=== PATIENT | male | born 1970 | race Caucasian/White ===

== ENCOUNTER → 2017-11-02 | Outpatient (CLI) | payer MEDICARE, MEDICAID ==
--- NOTE | 2017-11-02 19:32 | RADIOLOGY REPORT (SQ) ---
EXAM DESCRIPTION: U/S EXTREMITY NONVASCULAR LTD COMPLETED DATE/TIME: 11/02/2017 5:33 pm REASON FOR STUDY: MASS OF JOINT OF LEFT ELBOW, OTHER SPECIFIED JOINT DISORDERS, LEFT ELBOW M25.822 OTHER SPECIFIED JOINT DISORDERS, LEFT ELBOW COMPARISON: None. TECHNIQUE: Dynamic and static grayscale images acquired of the localized site of clinical concern an d recorded on PACS. Additional selected color Doppler and spectral images recorded. SITE OF CONCERN: Left antecubital fossa and proximal forearm. LIMITATIONS: None. FINDINGS: SKIN AND SUBCUTANEOUS TISSUES: No masses. No fluid collections. No edema. No foreign colette s. DEEP SOFT TISSUES/MUSCLES: No masses. No fluid collections. No edema. VASCULAR: No increased or decreased vascularity. No occlusions. OTHER: No other significant finding. IMPRESSION: NO SOFT TISSUE MASS, FLUID COLLECTION, OR FOREIGN BODY. TECHNICAL DOCUMENTATION: JOB ID: [id number] [employer]- All Rights Reserved Reading location - IP/workstation name: [email or web address]
== END ==
LOC: RAD 16:59
PROVIDERS: ATTEND Orthopaedic Surgery
DX: M25.822 Other specified joint disorders, left elbow (principal)
CPT/HCPCS: 76882